=== PATIENT | female | born 1985 | race American Indian/Alaskan Native ===

== ENCOUNTER 2019-08-07 20:54 | Emergency (ER) | payer SELFPAY ==
[2019-08-07] MEDS ORDERED: NORCO 10/325 PO ONE (21:47)
[2019-08-07] MEDS ORDERED: BOOSTRIX IM ONE (21:51)
--- NOTE | 2019-08-07 21:51 | Event Note ---
ED Screening Note Date of service: 08/07/19 Time: 21:44 ED Screening Note: This is a 34 y.o. F. that presents to the ER with laceration and multiple puncture wounds to bilateral forearm, left breast, and LUQ. Patient got attacked by a stray dog in the park 1-2 hours [employer]. PMH HTN, DM2, asthma, tachycardia, and HLD Tetanus not UTD This initial assessment/diagnostic orders/clinical plan/treatment(s) is/are subject to change based on patients health status, clinical progression and re-assessment by fellow clinical providers in the ED. Further treatment and workup at subsequent clinical providers discretion. Patient/guardian urged not to elope from the ED as their condition may be serious if not clinically assessed and managed. Initial orders include: XR bilateral forearms Boostrix
--- NOTE | 2019-08-07 22:45 | XRay Report ---
RIGHT FOREARM 2 VIEWS INDICATION / CLINICAL INFORMATION: multiple puncture wounds and laceration, dog bite COMPARISON: None available. FINDINGS: BONES / JOINT(S): No acute fracture or subluxation. No significant arthritis. SOFT TISSUES: There is soft tissue swelling. There is a small amount of soft tissue gas. ADDITIONAL FINDINGS: No radiopaque foreign bodies are seen. Signer Name: Kirt Bolwing MD Signed: 08/07/2019 10:41 PM Workstation Name: [id number]
[2019-08-08] MEDS ORDERED: MORPHINE ONE (00:03)
[2019-08-08] MEDS ORDERED: ZOFRAN ONE (00:03)
[2019-08-08] MEDS ORDERED: MORPHINE IM ONE (00:07)
[2019-08-08] MEDS ORDERED: ZOFRAN IM ONE (00:07)
[2019-08-08] MEDS ORDERED: RABAVERT RABIES VACCINE(PCEC) IM ONE (00:08)
[2019-08-08] MEDS ORDERED: NACL 0.9% 500 ML IR ONE (00:38)
[2019-08-08] MEDS ORDERED: BOOSTRIX IM ONE (00:39)
--- NOTE | 2019-08-08 00:39 | Emergency Department Report ---
ED Animal Bite HPI - General Chief Complaint: Animal Bite Stated Complaint: DOG BITE Time Seen by Provider: 08/07/19 21:43 Source: patient Mode of arrival: Ambulatory Limitations: No Limitations - History of Present Illness Initial Comments: This is a 34 y.o. F. that presents to the ER with laceration and multiple puncture wounds to bilateral forearm, left breast, and LUQ. Patient states she got attacked by a stray dog in the park 1-2 hours [employer]. PMH HTN, DM2, asthma, tachycardia, and HLD. Tetanus not UTD. pt did not call police or animal control. MD Complaint: animal bite Onset/Timin -: hour(s) Location: chest, abdomen Left: Forearm, Right: Forearm Animal: dog Animal Control Notified: No Description: unknown animal Mechanism: bite, scratch Pain Description: sharp Severity scale (0 -10): 5 Context: unprovoked Associated Symptoms: none Treatments Prior to Arrival: wound dressing(s) - Related Data Patient Tetanus UTD: No Previous Rx's Medication Instructions Recorded Last Taken Type Amoxicillin/Potassium Clav 1 each PO BID 10 Days #20 tablet 08/08/19 Unknown Rx [Augmentin 875-125 Tablet] HYDROcodone/APAP 5-325 [[place] 1 each PO Q6HR PRN #12 tablet 08/08/19 Unknown Rx 5-325 mg TAB] Neomycin/Bacitracin/Polymyxinb 30 gm TP BID 14 Days #1 tube 08/08/19 Unknown Rx [Triple Antibiotic Ointment] Allergies Allergy/AdvReac Type Severity Reaction Status Date / Time lisinopril Allergy Itching Verified 08/07/19 21:48 shellfish derived Allergy Hives Verified 08/07/19 21:48 ED Review of Systems ROS: Stated complaint: DOG BITE Other details as noted in HPI Constitutional: denies: chills, fever Eyes: denies: eye pain, eye discharge, vision change ENT: denies: ear pain, throat pain Respiratory: denies: cough, shortness of breath, wheezing Cardiovascular: denies: chest pain, palpitations Endocrine: no symptoms reported Gastrointestinal: denies: abdominal pain, nausea, diarrhea Genitourinary: denies: urgency, dysuria, discharge Musculoskeletal: denies: back pain, joint swelling, arthralgia Skin: other (puncture wounds lacerations bilat forearm, chest wall, abd wall ). denies: rash, lesions Neurological: denies: headache, weakness, paresthesias Psychiatric: denies: anxiety, depression Hematological/Lymphatic: denies: easy bleeding, easy bruising ED Past Medical Hx - Past Medical History Hx Hypertension: Yes Hx Diabetes: Yes Hx Asthma: Yes Additional medical history: cardiac arrythmias - Surgical History Additional Surgical History: LEAP 1998 - Social History Smoking Status: Never Smoker Substance Use Type: None - Medications Home Medications: Home Medications Medication Instructions Recorded Confirmed Last Taken Type Amoxicillin/Potassium Clav 1 each PO BID 10 Days #20 tablet 08/08/19 Unknown Rx [Augmentin 875-125 Tablet] HYDROcodone/APAP 5-325 [[place] 1 each PO Q6HR PRN #12 tablet 08/08/19 Unknown Rx 5-325 mg TAB] Neomycin/Bacitracin/Polymyxinb 30 gm TP BID 14 Days #1 tube 08/08/19 Unknown Rx [Triple Antibiotic Ointment] ED Physical Exam - General Limitations: No Limitations General appearance: alert, in no apparent distress - Head Head exam: Present: atraumatic, normocephalic - Eye Eye exam: Present: normal appearance, PERRL, EOMI Pupils: Present: normal accommodation - ENT ENT exam: Present: mucous membranes moist - Neck Neck exam: Present: normal inspection, full ROM. Absent: tenderness, lymphadenopathy - Respiratory Respiratory exam: Present: normal lung sounds bilaterally, other (puncture wound left breast, ). Absent: respiratory distress, wheezes, stridor - Cardiovascular Cardiovascular Exam: Present: regular rate, normal rhythm, normal heart sounds. Absent: systolic murmur, diastolic murmur, rubs, gallop - GI/Abdominal GI/Abdominal exam: Present: soft, normal bowel sounds, other (puncture wound left lateral abd wall ). Absent: distended, tenderness, guarding, rebound, rigid, bruit, hernia - Extremities Exam Extremities exam: Present: normal inspection, full ROM, normal capillary refill, other (forearm lacerations /puncture wounds multiple x 6 to bilat forearms). Absent: joint swelling - Expanded Upper Extremity Exam Left Forearm Wrist exam: Present: tenderness, abrasion, laceration. Absent: ecchymosis, deformity, crepidus, dislocation, erythema, tenderness over anatomical snuff box, pain with axial thumb loading Hand Wrist exam: Present: normal inspection, full ROM. Absent: tenderness Neuro motor exam: Present: wrist extension intact, thumb opposition intact, thumb IP flexion intact, thumb adduction intact, fingers 2-5 abduction intact Neurosensory exam: Present: 2-point discrimination, radial nerve intact, ulnar nerve intact, median nerve intact Vascular: Present: normal capillary refill, radial pulse. Absent: pulse deficit radial art, pulse deficit ulnar art, pulse deficit brachial art Right Forearm Wrist exam: Present: full ROM, tenderness, abrasion, laceration. Absent: swelling, ecchymosis, deformity, dislocation, erythema, tenderness over anatomical snuff box, pain with axial thumb loading Hand Wrist exam: Present: normal inspection, full ROM. Absent: tenderness, swelling, abrasion Neuro motor exam: Present: wrist extension intact, thumb opposition intact, thumb IP flexion intact, thumb adduction intact, fingers 2-5 abduction intact Neurosensory exam: Present: radial nerve intact, ulnar nerve intact, median ner ve intact Vascular: Present: normal capillary refill, radial pulse. Absent: pulse deficit radial art, pulse deficit ulnar art, pulse deficit brachial art - Back Exam Back exam: Present: normal inspection, full ROM. Absent: tenderness - Neurological Exam Neurological exam: Present: alert, oriented X3, CN II-XII intact, normal gait, reflexes normal. Absent: motor sensory deficit - Expanded Neurological Exam Expanded Motor strength exam: RUE: 5, LUE: 5, RLE: 5, LLE: 5 DTR: bicep (R): 2+, bicep (L): 2+ - Psychiatric Psychiatric exam: Present: normal affect, normal mood - Skin Skin exam: Present: warm, dry, normal color, other (lacerations and puncture wounds as above ). Absent: rash ED Course Vital Signs 08/07/19 21:49 Temperature 98.2 F Pulse Rate 108 H Respiratory 18 Rate Blood Pressure 189/121 O2 Sat by Pulse 97 Oximetry - Reevaluation(s) Reevaluation #1: bilat forearm punctures wounds x 6, all bleeding is controlled, left breast puncture wound, and left abdominal wall puncutures wounds are minor. Wounds irrigated with copious soap and water. Pt given rabies immunogobulin, and rabies vaccine. Sterile dressing applied, pain, medication and augmentin po. given. CMS remains intact, distal pulses intact, xray normal no fracture no foreign body. Police to bedside for police report at this time. Pt states in transit to [facility], pt given rabies vaccine schedule and wound care instructions. Pt verbalized agreement and understanding of same. All bleeding is controlled, pt tolerated procedure with minimal distress. 08/08/19 01:53 08/08/19 02:02 Critical care attestation.: If time is entered above; I have spent that time in minutes in the direct care of this critically ill patient, excluding procedure time. ED Disposition Clinical Impression: Animal bite of forearm Qualifiers: Encounter type: initial encounter Laterality: right Qualified Code(s): S51.851A - Open bite of right forearm, initial encounter Animal bite of left forearm Qualifiers: Encounter type: initial encounter Qualified Code(s): S51.852A - Open bite of left forearm, initial encounter Puncture wound of abdominal wall Qualifiers: Encounter type: initial encounter Qualified Code(s): S31.139A - Puncture wound of abdominal wall without foreign body, unspecified quadrant without penetration into peritoneal cavity, initial encounter Puncture wound of breast Qualifiers: Encounter type: initial encounter Laterality: left Qualified Code(s): S21.032A - Puncture wound without foreign body of left breast, initial encounter Disposition: - TO HOME OR SELFCARE Is pt being admited?: No Does the pt Need Aspirin: No Condition: Stable Instructions: Animal Bite (ED), Rabies Immune Globulin (Injection), Rabies (ED), Acute Wound Care (ED), Rabies Vaccine (Injection) Additional Instructions: follow up with your primary care doctor in 2 days for wound check and as directed until wounds heal. follow up with your primary care doctor or health department to complete rabies seried, Day 3, 7,and 14, needed as directed., Return sooner to your doctor for symptoms of infection as directed, dressing changes daily as directed. Prescriptions: Amoxicillin/Potassium Clav [Augmentin 875-125 Tablet] 1 each PO BID 10 Days #20 tablet HYDROcodone/APAP 5-325 [[place] 5-325 mg TAB] 1 each PO Q6HR PRN #12 tablet PRN Reason: Pain Neomycin/Bacitracin/Polymyxinb [Triple Antibiotic Ointment] 30 gm TP BID 14 Days #1 tube Referrals: PRIMARY CARE,MD [Primary Care Provider] - 3-5 Days Forms: Work/School Release Form(ED) Time of Disposition: 02:10
[2019-08-08] MEDS ORDERED: XYLOCAINE 2% INFILTRATI ONE (01:17)
[2019-08-08] MEDS ORDERED: AUGMENTIN 875 MG PO ONE (01:52)
[2019-08-08] MEDS ORDERED: TRIPLE ANTIBIOTIC TP ONE (02:55)
[2019-08-08 03:56] VITALS: BP 171/101
== END 2019-08-08 02:40 | disposition home or self-care (01) ==
LOC: ED 20:54
DX: S21.032A Puncture wound without foreign body of left breast, initial encounter (principal); S31.139A Puncture wound of abdominal wall without foreign body, unspecified quadrant without penetration into peritoneal cavity, initial encounter; S51.852A Open bite of left forearm, initial encounter; S51.851A Open bite of right forearm, initial encounter; I10 Essential (primary) hypertension; E11.9 Type 2 diabetes mellitus without complications; J45.909 Unspecified asthma, uncomplicated; Z79.899 Other long term (current) drug therapy; Z91.013 Allergy to seafood; Z88.6 Allergy status to analgesic agent; W54.0XXA Bitten by dog, initial encounter; Y93.89 Activity, other specified; Y92.89 Other specified places as the place of occurrence of the external cause; Y99.8 Other external cause status
CPT/HCPCS: 73090; 90375; 90471; 90472; 90675; 90715; 96372; 99283; J2270; J2405; A6250